=== PATIENT | female | born 2000 | race Caucasian/White ===

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

== ENCOUNTER 2022-01-26 16:17 | Emergency (ER) | payer OTHER ==
[~2022-01-26] VITALS: Ht 167.6 cm; Wt 90.8 kg
[2022-01-26 16:23] VITALS: BP 121/80
--- NOTE | 2022-01-26 16:29 | NUR ---
PT AMB TO BED 9.
--- NOTE | 2022-01-26 16:35 | NUR ---
21 y/o Female BIB mother for c/o of 9/ 10 sharp pain in coccyx for a possible cyst. Pt states she had the same pain on her coccyx x 2 years ago. Pt denies N/V/D at this time. PmHx: Denies Allergies: Denies Home meds: Advil 11am today
--- NOTE | 2022-01-26 16:37 | NUR ---
Female Librarian Specialist accompanied female patient for coccyx area examination.
[2022-01-26] MEDS ORDERED: KETOROLAC 30 MG/ML VIAL ONE (16:38)
[2022-01-26] MEDS ORDERED: LIDOCAINE MPF 1% 10 MG/ML VIAL INJ ONE (16:50)
--- NOTE | 2022-01-26 17:20 | NUR ---
Lawson ROSAS at bedside to perform I and D. Female hand cloth cutter provided at this time.
[2022-01-26] MEDS ORDERED: NAPR-54 PO (17:32)
[2022-01-26] MEDS ORDERED: CEPH-588 PO (17:32)
[2022-01-26 17:49] VITALS: BP 118/78
--- NOTE | 2022-01-26 17:49 | NUR ---
Patient discharged with v/s stable. Written and verbal after care instructions given and explained with teachback. Patient alert, oriented and verbalized understanding of instructions. Ambulatory with steady gait. All questions addressed prior to discharge. ID band removed. Patient advised to follow up with PMD. Rx of keflex/naprosyn given. Patient educated on indication of medication including possible reaction and side effects. Opportunity to ask questions provided and answered.
== END 2022-01-26 17:49 | disposition home or self-care (01) ==
LOC: MED 16:17
DX: L05.91 Pilonidal cyst without abscess (principal)
CPT/HCPCS: 10080; 99283; J1885; J2001

== ENCOUNTER 2022-01-31 09:08 | Emergency (ER) | payer OTHER ==
[~2022-01-31] VITALS: Ht 165.1 cm; Wt 90.7 kg
[~2022-01-31 09:08] MED LIST: CEPH-588 PO; NAPR-54 PO
[2022-01-31 09:23] VITALS: BP 142/81
--- NOTE | 2022-01-31 09:52 | NUR ---
DR ROSALES AT BEDSIDE EVALUATING PT
--- NOTE | 2022-01-31 09:52 | NUR ---
md beckford in room for pt evaluation
[2022-01-31] MEDS ORDERED: LIDOCAINE MPF 1% 10 MG/ML VIAL INJ ONE (09:55)
[2022-01-31] MEDS ORDERED: LIDOCAINE MPF 1% 5 ML ONE (09:58)
--- NOTE | 2022-01-31 10:05 | NUR ---
21 y/o female bib self, c/o low back pain in relation to abscess present, yellow discharge at site. pt states she was seen here for same s/s and had area drained. denies nausea, vomiting, diarrhea. skin is pink/warm/dry. a&o x4 with even and steady gait. lungs clear bl, heart rate even and regular. pt denies any fever, cp, sob, or cough at this time. pt states pain is 6/10 at this time, pressure/constant/nonradiating. vss. patient positioned for comfort. hob elevated. bed down. ermd made aware of pt. pmh: pudendal cyst nka med: denies
--- NOTE | 2022-01-31 10:30 | NUR ---
CLEANED AROUND PT WOUND AND DRESSED WOUND USING NON-ADHERENT PADS AND SECURED WITH MEDICAL TAPE. ERMD NOTIFIED.
[2022-01-31 10:49] VITALS: BP 142/81
== END 2022-01-31 10:50 | disposition home or self-care (01) ==
LOC: MED 09:08
DX: L05.91 Pilonidal cyst without abscess (principal); Z79.899 Other long term (current) drug therapy
CPT/HCPCS: 10080; 99284; J2001

== ENCOUNTER 2022-02-02 09:12 | Emergency (ER) | payer OTHER ==
[~2022-02-02] VITALS: Ht 167.6 cm; Wt 90.4 kg
[2022-02-02 09:16] VITALS: BP 118/85
--- NOTE | 2022-02-02 09:24 | NUR ---
PT AMB TO BED 6.
--- NOTE | 2022-02-02 09:34 | NUR ---
21 y/o female bib self for wound recheck of pilonidial cyst. Patient had I&D x 2 days ago. Patient has 6/10 pain to cyst location. Medical History: Denies NKDA
--- NOTE | 2022-02-02 09:50 | NUR ---
Dr. Frye evaluating patient at bedside.
--- NOTE | 2022-02-02 10:11 | NUR ---
Patient discharged with v/s stable. Written and verbal after care instructions given. Patient verbalized understanding. Ambulatory with steady gait. All questions addressed prior to discharge. Advised to follow up with PMD.
--- NOTE | 2022-02-02 10:13 | NUR ---
PT'S WOUND DRESSED WITH 4X4 GAUZE AND MEDICAL TAPE.
--- NOTE | 2022-02-02 10:15 | NUR ---
The patient's care was reviewed and supervised by Sada Gil RN.
== END 2022-02-02 10:11 | disposition home or self-care (01) ==
LOC: MED 09:12
DX: L05.01 Pilonidal cyst with abscess (principal); Z98.890 Other specified postprocedural states; Z79.1 Long term (current) use of non-steroidal anti-inflammatories (NSAID); Z79.2 Long term (current) use of antibiotics
CPT/HCPCS: 99282

== ENCOUNTER 2022-02-06 14:00 | Emergency (ER) | payer OTHER ==
[~2022-02-06] VITALS: Ht 167.6 cm; Wt 90.3 kg
[2022-02-06 14:37] VITALS: BP 122/89
--- NOTE | 2022-02-06 15:51 | NUR ---
Patient discharged with v/s stable. Written and verbal after care instructions FOR WOUND CARE given and explained. Patient verbalized understanding. Ambulatory with steady gait. All questions addressed prior to discharge. Advised to follow up with PMD.
--- NOTE | 2022-02-06 16:25 | NUR ---
The patient's care was reviewed and supervised by ED Agency Nurse 7, RN, RN.
== END 2022-02-06 15:51 | disposition home or self-care (01) ==
LOC: MED 14:00
DX: Z48.00 Encounter for change or removal of nonsurgical wound dressing (principal); Z98.890 Other specified postprocedural states; Z79.1 Long term (current) use of non-steroidal anti-inflammatories (NSAID); Z79.2 Long term (current) use of antibiotics
CPT/HCPCS: 99281